=== PATIENT | male | born 1990 | race Hispanic/Latino ===

== ENCOUNTER 2018-10-10 05:44 | Emergency (ER) | payer SELFPAY ==
[~2018-10-10] VITALS: Ht 167.6 cm; Wt 88.6 kg
[~2018-10-10 05:44] MED LIST: BENADRY2 EX; MEDDOSEPAK PO; MOTRIN800 MG PO; NO HOME MEDS; TORADOL OR; ULTRAM50 M1 PO
[2018-10-10] MEDS ORDERED: CEPHALEXIN500 M1 PO (07:22)
[2018-10-10] MEDS ORDERED: NAPROSYN500 MG PO (07:22)
[2018-10-10 08:00] VITALS: BP 137/92
== END 2018-10-10 08:00 | disposition home or self-care (01) | DRG 605 ==
LOC: ED 05:44
PROC: 0HQLXZZ Repair Left Lower Leg Skin, External Approach (ICD-10-PCS; principal; 2018-10-10)
DX: S81.012A Laceration without foreign body, left knee, initial encounter (principal); M25.462 Effusion, left knee; W45.8XXA Other foreign body or object entering through skin, initial encounter; W22.8XXA Striking against or struck by other objects, initial encounter; Y93.H2 Activity, gardening and landscaping; Y92.007 Garden or yard of unspecified non-institutional (private) residence as the place of occurrence of the external cause

== ENCOUNTER 2018-10-11 08:45 | Emergency (ER) | payer SELFPAY ==
[~2018-10-11] VITALS: Ht 167.6 cm; Wt 90.0 kg
[~2018-10-11 08:45] MED LIST changes: +CEPHALEXIN500 M1 PO; +NAPROSYN500 MG PO
[2018-10-11 08:52] VITALS: BP 145/83
== END 2018-10-11 08:56 | disposition home or self-care (01) | DRG 950 ==
LOC: ED 08:45
DX: S81.012D Laceration without foreign body, left knee, subsequent encounter (principal); X58.XXXD Exposure to other specified factors, subsequent encounter

== ENCOUNTER 2018-10-20 10:33 | Emergency (ER) | payer SELFPAY ==
[~2018-10-20] VITALS: Ht 167.6 cm; Wt 81.0 kg
[2018-10-20 11:30] VITALS: BP 138/88
== END 2018-10-20 11:30 | disposition home or self-care (01) | DRG 950 ==
LOC: ED 10:33
DX: S81.002D Unspecified open wound, left knee, subsequent encounter (principal); X58.XXXD Exposure to other specified factors, subsequent encounter

== ENCOUNTER 2020-10-07 10:44 | Emergency (ER) | payer OTHER ==
[~2020-10-07] VITALS: Ht 167.6 cm; Wt 82.0 kg
[2020-10-07 11:50] VITALS: BP 166/97
== END 2020-10-07 11:50 | disposition home or self-care (01) | DRG 153 ==
LOC: ED 10:44
DX: J06.9 Acute upper respiratory infection, unspecified (principal); Z20.822 Contact with and (suspected) exposure to COVID-19

== ENCOUNTER 2022-07-28 06:56 | Emergency (ER) | payer MEDICAID ==
[~2022-07-28] VITALS: Ht 167.6 cm; Wt 81.6 kg
[2022-07-28 07:11] VITALS: BP 143/104
[2022-07-28 07:15] VITALS: BP 147/102
[2022-07-28] MEDS ORDERED: AMOX/K CLAV875 M1 PO (07:23)
[2022-07-28 07:27] VITALS: BP 144/101
[2022-07-28 07:28] VITALS: BP 143/93
[2022-07-28 07:30] VITALS: BP 139/101
== END 2022-07-28 07:39 | disposition home or self-care (01) ==
LOC: ED 06:56
DX: J02.9 Acute pharyngitis, unspecified (principal)

== ENCOUNTER 2022-08-08 17:02 | Observation (INO) | payer MEDICAID ==
[~2022-08-08] VITALS: Ht 170.2 cm; Wt 95.6 kg
[2022-08-08] VITALS (13 sets, daily range): BP systolic 122–177; BP diastolic 77–122
[~2022-08-08 17:02] MED LIST changes: +AMOX/K CLAV875 M1 PO
[2022-08-08 18:06] LABS: BASO% 0.3 % (0-3); EOS% 0.8 % (0-8); HEMATOCRIT 39.3 % (39.0-50.0); HEMOGLOBIN 12.9 g/dl (14.0-18.0); IMMATURE GRANULOCYTES 1.2 % (0.0-5.0); LYMPH% 23.4 % (15-41); MEAN CORPUSCULAR HGB 28.2 pG CALC (26.0-32.0); MEAN CORPUSCULAR HGB CONC 32.8 g/dL CAL (32.0-36.0); MONO% 4.8 % (2-13); NEUT# 9.17 thou/uL (1.82-7.42); NEUT% 69.5 % (42-76); RED BLOOD COUNT 4.57 mill/uL (4.70-6.10); RED CELL DISTRI WIDTH 11.6 % (11.5-15.5)
[2022-08-08 18:15] LABS: ALBUMIN 4.8 g/dL (3.2-5.0); ALKALINE PHOSPHATASE 116 u/l (38-126); ANION GAP 15 (6-22 (CALC)); BILIRUBIN, TOTAL 0.2 mg/dL (0.2-1.3); BUN 13 mg/dL (9-20); BUN/CREATININE RATIO 15 (12-20 (CALC)); CARBON DIOXIDE 29 mmol/l (22-30); CHLORIDE 100 mmol/l (95-108); CREATININE 0.9 mg/dL (0.7-1.3); GFR FOR AFR.AMER. > 60 ML/MIN (>=60 (CALC)); GFR OTHER RACES > 60 ML/MIN (>=60 (CALC)); LIPASE 154 u/l (23-300); POTASSIUM 3.9 mmol/l (3.5-5.1); SGOT/AST 46 u/l (17-59); SODIUM 139 mmol/l (137-146); TOTAL PROTEIN 8.8 g/dL (6.3-8.2)
[2022-08-08 20:03] LABS: URINE BILIRUBIN - DIPSTICK NEGATIVE (NEGATIVE); URINE BLOOD DIPSTICK NEGATIVE (NEGATIVE); URINE COLOR YELLOW; URINE GLUCOSE - DIPSTICK NEGATIVE (NEGATIVE); URINE KETONE NEGATIVE (NEGATIVE); URINE LEUK ESTERASE NEGATIVE (NEGATIVE); URINE PROTEIN - DIPSTICK NEGATIVE (NEG-TRACE); URINE SPECIFIC GRAVITY 1.015; URINE UROBILINOGEN - DIPSTICK 0.2 E.U./dL (0.2)
[2022-08-08 20:33] LABS: URINE NITRITE - DIPSTICK NEGATIVE (Negative)
[2022-08-09] VITALS (11 sets, daily range): BP systolic 115–140; BP diastolic 61–92
[2022-08-09] MEDS ORDERED: PERCOCET 5/325M1 TAB PO (08:25)
[2022-08-10] MEDS ORDERED: PERCOCET 5/325M1 TAB PO (13:17)
== END 2022-08-09 19:08 | disposition home or self-care (01) ==
LOC: ED 17:02 → ED-I 23:23 → ED 23:35 → MS2 23:36
PROVIDERS: Family Medicine; ADMIT Surgery; ATTEND Surgery
DX: K35.30 Acute appendicitis with localized peritonitis, without perforation or gangrene (principal); Z20.822 Contact with and (suspected) exposure to COVID-19
CPT/HCPCS: G0378; J0131; Q9967; S0164